=== PATIENT | female | born 1955 | race Two or more races ===

== ENCOUNTER 2017-01-28 16:42 | Emergency (ER) | payer BC, OTHER ==
[~2017-01-28] VITALS: Ht 152.4 cm; Wt 64.4 kg
--- NOTE | 2017-01-28 18:08 | NUR ---
Patient discharged to home in stable conditon. Written and verbal after care instructions given. Patient verbalizes understanding of instructions.PT SAYS FEELS BETTER, PT DENIES ANY HEADACHE OR DIZZINES
[2017-01-28 18:12] VITALS: BP 167/89
== END 2017-01-28 18:13 | disposition home or self-care (01) ==
LOC: ER 16:44
DX: I10 Essential (primary) hypertension (principal); M54.5 Low back pain; Z88.1 Allergy status to other antibiotic agents; Z88.6 Allergy status to analgesic agent
CPT/HCPCS: A4663

== ENCOUNTER 2017-03-03 11:11 | Inpatient (IN) | payer BC, OTHER ==
[~2017-03-03] VITALS: Ht 152.4 cm; Wt 48.5 kg
--- NOTE | 2017-03-03 11:59 | NUR ---
PAGED DR NATARAJAN ([employer]).
[2017-03-03] MEDS ORDERED: CLON0.1T PO (12:06)
[2017-03-03] MEDS ORDERED: LOSA100T15 PO (12:06)
[2017-03-03 12:32] LABS: BASOPHILS # (AUTO) 0.1 K/uL (0.0-8.0); EOSINOPHILS # (AUTO) 0.1 K/uL (0.0-0.7); EOSINOPHILS % (AUTO) 0.7 % (0.0-7.0); LYMPHOCYTES # (AUTO) 2.5 K/UL (0.8-4.8); LYMPHOCYTES % (AUTO) 29.4 % (20.5-51.5); MEAN CORPUSCULAR HGB CONC 34 g/dL (32.0-37.0); MEAN CORPUSCULAR VOLUME 84.9 FL (81.0-99.0); MONOCYTES # (AUTO) 0.7 K/UL (0.1-1.30); MONOCYTES % (AUTO) 8.1 % (0.0-11.0); NEUTROPHILS # (AUTO) 5.1 K/UL (1.8-8.9); NEUTROPHILS % (AUTO) 60.8 % (38.5-71.5); PLATELET COUNT (AUTO) 388 K/UL (150-450); RED BLOOD CELL COUNT(AUTO) 5.19 MIL/UL (4.2-5.4); WHITE BLOOD COUNT (AUTO) 8.4 K/UL (4.0-11.2)
[2017-03-03 12:39] LABS: CREATININE 0.8 mg/dL (0.6-1.3); POTASSIUM 3.6 mmol/L (3.5-5.1)
[2017-03-03 12:51] LABS: BILIRUBIN,DIRECT 0.1 mg/dL (0.0-0.2); BILIRUBIN,TOTAL 0.4 mg/dL (0.2-1.0)
--- NOTE | 2017-03-03 13:19 | NUR ---
pt resting comfortable in bed, no sign of distress.
[2017-03-03] MEDS ORDERED: IBUPROFEN 400 MG TABLET PO PRN (13:30)
[2017-03-03] MEDS ORDERED: LORAZEPAM 2 MG/1 ML VIAL IV PRN (13:30)
[2017-03-03] MEDS ORDERED: ONDANSETRON 4 MG/2 ML VIAL IV PRN (13:30)
[2017-03-03] MEDS ORDERED: hydrALAZINE HCL 25 MG TABLET PO PRN (13:30)
--- NOTE | 2017-03-03 13:44 | NUR ---
meseret,cans vacuum tester at bedside.
--- NOTE | 2017-03-03 13:49 | NUR ---
pt transfered to floor in stable condition
--- NOTE | 2017-03-03 14:05 | NUR ---
Admitted from home via ER, admitting diagnosis hypertension. Alert and oriented x 3 denies headache dizziness chest pain. Routine admission assessment initiated.
[2017-03-03 14:20] VITALS: BP 171/84
--- NOTE | 2017-03-03 14:32 | NUR ---
Dr. Pina notified of admission. Awaiting callback.
[2017-03-03 15:08] VITALS: BP 172/84
[2017-03-03 15:09] LABS: *BILIRUBIN,URIN NEGATIVE (NEGATIVE); *BLOOD, URINE 2+ (NEGATIVE); *CLARITY,URINE CLEAR (CLEAR); *COLOR,URINE YELLOW (YELLOW); *KETONES,URINE NEGATIVE (NEGATIVE); *PROTEIN,URINE NEGATIVE (NEGATIVE); *UROBILINOGEN,URINE 0.2 E.U./dl (NORMAL); LEUKOCYTE ESTERASE ,URINE TRACE (NEGATIVE); NITRITE, URINE NEGATIVE (NEGATIVE); UGLUCOSE NEGATIVE (NEGATIVE)
[2017-03-03 15:18] LABS: SQUAMOUS EPITHELIAL CELL,UR MODERATE /HPF (NONE SEEN)
[2017-03-03] MEDS: AMLODIPINE 5 MG TABLET PO SCH (15:32)
--- NOTE | 2017-03-03 15:54 | NUR ---
[employer] called back for admission orders, sinus rhythm on monitor. Norvasc given for high blood pressure.
[2017-03-03] MEDS ORDERED: LORAZEPAM 1 MG TABLET PO PRN (16:00)
[2017-03-03] MEDS: HYDROCHLOROTHIAZIDE 12.5 MG CAPSULE PO SCH (16:09)
[2017-03-03] MEDS: ASPIRIN EC 81 MG TABLET.DR PO SCH (16:09)
[2017-03-03] MEDS ORDERED: CEFTRIAXONE 1 G in IV DEXTROSE 5% 50 ML IV SCH (17:00)
[2017-03-03 17:41] VITALS: BP 173/69
[2017-03-03 20:00] VITALS: BP 157/91
[2017-03-03] MEDS ORDERED: CLONIDINE HCL 0.1 MG TABLET PO PRN (21:00)
[2017-03-04] VITALS: BP 105/51
[2017-03-04 04:00] VITALS: BP 110/55
--- NOTE | 2017-03-04 05:28 | NUR ---
nsg: no acute distress noted. denies discomfort. all needs attended. cont to monitor.
[2017-03-04 06:58] LABS: BASOPHILS % (AUTO) 0.3 % (0.0-2.0); EOSINOPHILS # (AUTO) 0.1 K/uL (0.0-0.7); HEMATOCRIT 41.6 % (31.2-41.9); HEMOGLOBIN 14.6 g/dL (10.9-14.3); LYMPHOCYTES # (AUTO) 2.7 K/uL (20.0-40.0); LYMPHOCYTES % (AUTO) 37.1 % (20.5-51.5); MEAN CORPUSCULAR HEMOGLOBIN 30.3 uug (24.7-32.8); MEAN CORPUSCULAR HGB CONC 35 g/dL (32.3-35.6); MEAN CORPUSCULAR VOLUME 86.2 fL (75.5-95.3); MONOCYTES # (AUTO) 0.8 K/uL (2.0-10.0); MONOCYTES % (AUTO) 11.1 % (0.0-11.0); NEUTROPHILS # (AUTO) 3.7 K/uL (1.8-8.9); NEUTROPHILS % (AUTO) 49.5 % (38.5-71.5); PLATELET COUNT (AUTO) 317 K/uL (179-408); RED BLOOD CELL COUNT(AUTO) 4.82 MIL/uL (3.63-4.92); WHITE BLOOD COUNT (AUTO) 7.4 K/uL (3.8-11.8)
[2017-03-04 07:18] LABS: THYROID STIMULATING HORMONE 1.66 mIU/mL (0.358-3.740)
[2017-03-04 07:45] LABS: CREATININE 1.2 mg/dL (0.6-1.3); MAGNESIUM 2.1 mg/dL (1.8-2.4); POTASSIUM 3.9 mmol/L (3.5-5.1)
[2017-03-04] MEDS: ASPIRIN EC 81 MG TABLET.DR PO SCH (08:43)
[2017-03-04] MEDS: HYDROCHLOROTHIAZIDE 12.5 MG CAPSULE PO SCH (08:43)
[2017-03-04] MEDS: AMLODIPINE 5 MG TABLET PO SCH (08:44)
[2017-03-04] MEDS ORDERED: FAMOTIDINE 20 MG TABLET PO SCH (09:00)
[2017-03-04 09:05] LABS: BILIRUBIN,TOTAL 0.4 mg/dL (0.2-1.0); TOTAL PROTEIN, SERUM 7.5 g/dL (6.4-8.2)
[2017-03-04] MEDS ORDERED: MORPHINE SULFATE 2 MG/1 ML DISP.SYRIN IV PRN (10:00)
[2017-03-04] MEDS ORDERED: ACETAMINOPHEN/CODEINE 300-30 MG TABLET PO PRN (12:15)
[2017-03-04 12:54] VITALS: BP 115/51
[2017-03-04] MEDS ORDERED: CLON0.1T14 PO (13:56)
[2017-03-04] MEDS ORDERED: HYDR12.517 PO (13:56)
[2017-03-04] MEDS ORDERED: AMLO5TAB2 PO (13:56)
[2017-03-04] MEDS ORDERED: CEPH250C PO (13:56)
[2017-03-04] MEDS ORDERED: ATOR40TA PO (13:56)
[2017-03-04] MEDS ORDERED: ACET-1467 PO (13:56)
[2017-03-04] MEDS ORDERED: LACT1CAP59 PO (13:56)
[2017-03-04] MEDS ORDERED: CEPHALEXIN MONOHYDRATE 250 MG CAPSULE PO SCH (14:00)
--- NOTE | 2017-03-04 14:00 | NUR ---
DR GRACIA IN WITH ORDERS FOR DISCHARGE, BI DATA MODELER AWARE.
[2017-03-04 15:49] VITALS: BP 116/55
--- NOTE | 2017-03-04 16:05 | NUR ---
DISCHARGED HOME STABLE WITH INSTRUCTION ACCOMPANIED BY FAMILY
[2017-03-04] MEDS ORDERED: ATORVASTATIN 40 MG TABLET PO SCH (21:00)
== END 2017-03-04 16:00 | disposition home or self-care (01) | DRG 305 ==
LOC: ER 11:11 → TELE 13:42 → MED 03-04 13:45
PROVIDERS: ADMIT Internal Medicine; ATTEND Internal Medicine
DX: I11.9 Hypertensive heart disease without heart failure (principal); J84.10 Pulmonary fibrosis, unspecified; E11.65 Type 2 diabetes mellitus with hyperglycemia; N39.0 Urinary tract infection, site not specified; G89.29 Other chronic pain; M54.5 Low back pain; R74.0 Nonspecific elevation of levels of transaminase and lactic acid dehydrogenase [LDH]; F41.9 Anxiety disorder, unspecified; Z82.49 Family history of ischemic heart disease and other diseases of the circulatory system; E78.5 Hyperlipidemia, unspecified; E83.39 Other disorders of phosphorus metabolism; G47.00 Insomnia, unspecified; T14.90XS Injury, unspecified, sequela; X58.XXXS Exposure to other specified factors, sequela; Z98.890 Other specified postprocedural states; Z83.6 Family history of other diseases of the respiratory system; Z79.899 Other long term (current) drug therapy; F32.9 Major depressive disorder, single episode, unspecified
CPT/HCPCS: 36415; 70030-TC; 71010; 83735; 84100; 84443; 85025; 85730; 87086; 93005; A4663; J0696; J7050; J7060

== ENCOUNTER 2017-04-27 10:55 | Outpatient (CLI) | payer BC, OTHER ==
[~2017-04-27 10:55] MED LIST: ACET-1467 PO; AMLO5TAB2 PO; ATOR40TA PO; CEPH250C PO; HYDR12.517 PO; LACT1CAP59 PO
[2017-04-27 11:19] LABS: BASOPHILS % (AUTO) 0.7 % (0.0-2.0); EOSINOPHILS # (AUTO) 0.1 K/uL (0.0-0.7); EOSINOPHILS % (AUTO) 1.4 % (0.0-7.0); HEMATOCRIT 39.8 % (31.2-41.9); LYMPHOCYTES # (AUTO) 2.6 K/uL (20.0-40.0); LYMPHOCYTES % (AUTO) 36.2 % (20.5-51.5); MEAN CORPUSCULAR HEMOGLOBIN 30.7 uug (24.7-32.8); MEAN CORPUSCULAR HGB CONC 35 g/dL (32.3-35.6); MONOCYTES # (AUTO) 0.5 K/uL (2.0-10.0); MONOCYTES % (AUTO) 7.5 % (0.0-11.0); NEUTROPHILS # (AUTO) 3.9 K/uL (1.8-8.9); NEUTROPHILS % (AUTO) 54.2 % (38.5-71.5); PLATELET COUNT (AUTO) 337 K/uL (179-408); RED BLOOD CELL COUNT(AUTO) 4.57 MIL/uL (3.63-4.92); WHITE BLOOD COUNT (AUTO) 7.2 K/uL (3.8-11.8)
[2017-04-27 11:37] LABS: BILIRUBIN,TOTAL 0.3 mg/dL (0.2-1.0); CREATININE 0.7 mg/dL (0.6-1.3); TOTAL PROTEIN, SERUM 7.6 g/dL (6.4-8.2)
[2017-04-27 12:16] LABS: *BILIRUBIN,URIN NEGATIVE (NEGATIVE); *BLOOD, URINE 1+ (NEGATIVE); *CLARITY,URINE CLEAR (CLEAR); *COLOR,URINE YELLOW (YELLOW); *KETONES,URINE NEGATIVE (NEGATIVE); *PROTEIN,URINE NEGATIVE (NEGATIVE); *UROBILINOGEN,URINE 0.2 E.U./dl (NORMAL); LEUKOCYTE ESTERASE ,URINE TRACE (NEGATIVE); NITRITE, URINE NEGATIVE (NEGATIVE); PH,URINE 7.5 (5.0-8.0); UGLUCOSE NEGATIVE (NEGATIVE)
[2017-04-27 13:07] LABS: BACTERIA,URINE MODERATE /HPF (NONE SEEN); SQUAMOUS EPITHELIAL CELL,UR FEW /HPF (NONE SEEN); WBC,URINE 0-3 /HPF (0-3)
== END 2017-04-27 23:59 | disposition home or self-care (01) ==
LOC: LAB 10:55
PROVIDERS: ATTEND Internal Medicine
DX: Z01.818 Encounter for other preprocedural examination (principal); R91.1 Solitary pulmonary nodule; M47.894 Other spondylosis, thoracic region; I10 Essential (primary) hypertension; R53.83 Other fatigue; R53.81 Other malaise
CPT/HCPCS: 36415; 71046; 85025; 85730